=== PATIENT | female | born 1975 | race Caucasian/White ===

== ENCOUNTER 2017-03-20 09:22 | Emergency (ER) | payer OTHER ==
[~2017-03-20] VITALS: Wt 65.8 kg
[~2017-03-20 09:22] MED LIST: ADDERALL 20 MG20 MG PO; AMBIEN10 M1 PO; ATARAX25 MG PO; AUGMENTIN 875 M1 TAB PO; AUGMENTIN 875875 MG PO; BACTRIM DS 8001 TA1 PO; BENTYL10 MG PO; CLARITIN10 MG PO; DIFLUCAN150 MG PO; DONNATAL1 CA1; DONNATAL1 TAB PO; ELAVIL25 MG PO; FLONASE ALLERG9.9 ML NAS; HYDROCODONE BIT1 T11 PO; KEFLEX500 MG PO; LAMISIL; MEDROL DOSEPAK4 MG PO; MOTRIN800 MG PO; NAPROSYN500 MG PO; NKHM; NUVARING1 ICR; ORTHO TRI-CYCLE1 TA1 PO; PAC; PEPCID20 MG PO; PERCOCET 325 MG1 TA2 PO; PREDNICOT20 MG PO; PREDNISONE10 MG PO; PREVACID15 MG; ROBITUSSIN AC 110 ML PO; SEASONALE 30 MC1 TAB; VALIUM2 MG PO; VITAMINS FOR HA1 CAP PO; ZITHROMAX250 MG PO; ZOFRAN4 MG PO; [UNRECOGNIZED DRUG - REMARK]
[2017-03-20 09:27] VITALS: BP 129/86
== END 2017-03-20 10:06 | disposition home or self-care (01) ==
LOC: ED 09:22
DX: S61.011A Laceration without foreign body of right thumb without damage to nail, initial encounter (principal); F17.200 Nicotine dependence, unspecified, uncomplicated; Z29.12 Encounter for prophylactic antivenin; Z88.8 Allergy status to other drugs, medicaments and biological substances; Z79.899 Other long term (current) drug therapy; X58.XXXA Exposure to other specified factors, initial encounter; Y93.9 Activity, unspecified; Y92.9 Unspecified place or not applicable; Y99.9 Unspecified external cause status

== ENCOUNTER → 2018-02-20 | Outpatient (CLI) | payer OTHER | END | disposition home or self-care (01) | LOC: MAMMO 02-08 10:20 | DX: Z12.31 Encounter for screening mammogram for malignant neoplasm of breast (principal) ==

== ENCOUNTER → 2018-03-13 | Outpatient (CLI) | payer OTHER | END | disposition home or self-care (01) | LOC: LAB 13:27 | DX: R53.83 Other fatigue (principal); R79.89 Other specified abnormal findings of blood chemistry ==

== ENCOUNTER → 2019-01-18 | Outpatient (CLI) | payer OTHER | END | disposition home or self-care (01) | LOC: ORTHO 00:56 | DX: M25.551 Pain in right hip (principal) ==

== ENCOUNTER 2019-07-11 17:52 | Emergency (ER) | payer OTHER ==
[~2019-07-11] VITALS: Ht 154.9 cm; Wt 81.6 kg
[2019-07-11 17:52] VITALS: BP 117/89
[2019-07-11 18:50] LABS: BASO # 0.1 10*3/uL (0.0-0.1); BASO % 0.7 % (0.0-1.0); EOS # 0.2 10*3/uL (0.0-0.4); EOS % 2.2 % (1.0-4.0); HEMATOCRIT 42.2 % (37.0-47.0); HEMOGLOBIN 14.7 g/dl (12.0-16.0); LYMPH # 1.5 10*3/uL (1.3-4.4); MEAN CELL VOLUME 92.5 fl (81.0-99.0); MEAN CORPUSCULAR HGB 32.2 pg (27.0-31.0); MEAN CORPUSCULAR HGB CONC 34.8 g/dl (33.0-37.0); MEAN PLATELET VOLUME 9.9 fl (9.6-12.3); MONO # 0.6 10*3/uL (0.1-1.0); MONO % 6.9 % (3.0-9.0); NEUT # 5.9 10*3/uL (2.3-7.9); PLATELET COUNT AUTOMATED 296 10*3/uL (130-400); RED BLOOD COUNT 4.56 10*6/uL (4.10-5.10); RED CELL DISTRI WIDTH 11.4 % (0-14.5); WHITE BLOOD COUNT 8.2 10*3/uL (4.8-10.8)
[2019-07-11 19:03] LABS: ALBUMIN 3.9 gm/dl (3.1-4.5); ALKALINE PHOSPHATASE 68 U/L (45-117); BUN 16 mg/dl (7-24); CHLORIDE 106 mmol/L (98-107); CREATININE 0.93 mg/dL (0.55-1.02); POTASSIUM 4.1 mmol/L (3.5-5.1); SGOT/AST 15 IU/L (3-35); SGPT/ALT 24 U/L (12-78); SODIUM 138 mmol/L (136-145); TOTAL PROTEIN 7.7 gm/dL (6.4-8.2)
[2019-07-11] MEDS ORDERED: PERCOCET 5-3251 EACH PO (19:39)
--- NOTE | 2019-07-11 20:00 | NUR ---
PATIENT INSTRUCT ON IS USE. PATIENT ACHIEVED 2000 X 10. GOOD PATIENT EFFORT. INSTRUCTED ON SPLINTED COUGHING TECHNIQUE. EDUCATED PATIENT ON THE IMPORTANCE OF COUGH AND DEEP BREATHING TECNIQUES, ENCOURAGE PATIENT TO CONTINUE AT HOME.
== END 2019-07-11 20:04 | disposition home or self-care (01) ==
LOC: ED 17:52
PROVIDERS: Nurse Practitioner Family
DX: S22.41XA Multiple fractures of ribs, right side, initial encounter for closed fracture (principal); J45.909 Unspecified asthma, uncomplicated; Z88.8 Allergy status to other drugs, medicaments and biological substances; Z79.899 Other long term (current) drug therapy; W10.8XXA Fall (on) (from) other stairs and steps, initial encounter; Y93.01 Activity, walking, marching and hiking; Y92.89 Other specified places as the place of occurrence of the external cause; Y99.8 Other external cause status

== ENCOUNTER 2019-07-19 16:42 | Emergency (ER) | payer OTHER ==
[~2019-07-19] VITALS: Ht 170.1 cm; Wt 81.6 kg
[~2019-07-19 16:42] MED LIST changes: +PERCOCET 5-3251 EACH PO
[2019-07-19 16:45] VITALS: BP 131/69
[2019-07-19] MEDS ORDERED: NAPROSYN500 MG PO (18:13)
[2019-07-19] MEDS ORDERED: PREDNISONE50 MG PO (18:13)
[2019-07-19] MEDS ORDERED: ZITHROMAX250 MG PO (18:13)
[2019-07-19] MEDS ORDERED: DIFLUCAN150 MG PO (18:28)
[2019-07-19] MEDS ORDERED: ROBITUSSIN DM 105 ML PO (18:28)
== END 2019-07-19 18:20 | disposition home or self-care (01) ==
LOC: ED 16:42
DX: J20.9 Acute bronchitis, unspecified (principal); F17.200 Nicotine dependence, unspecified, uncomplicated; Z88.8 Allergy status to other drugs, medicaments and biological substances; Z79.899 Other long term (current) drug therapy

== ENCOUNTER 2019-08-18 16:44 | Emergency (ER) | payer OTHER ==
[~2019-08-18] VITALS: Wt 68.0 kg
[~2019-08-18 16:44] MED LIST changes: +PREDNISONE50 MG PO; +ROBITUSSIN DM 105 ML PO
[2019-08-18 17:14] LABS: BASO % 0.5 % (0.0-1.0); EOS # 0.1 10*3/uL (0.0-0.4); EOS % 2.5 % (1.0-4.0); HEMATOCRIT 38.8 % (37.0-47.0); HEMOGLOBIN 13.8 g/dl (12.0-16.0); LYMPH # 1.4 10*3/uL (1.3-4.4); LYMPH % 24.6 % (27.0-41.0); MEAN CELL VOLUME 90.4 fl (81.0-99.0); MEAN CORPUSCULAR HGB 32.2 pg (27.0-31.0); MEAN CORPUSCULAR HGB CONC 35.6 g/dl (33.0-37.0); MEAN PLATELET VOLUME 9.9 fl (9.6-12.3); MONO # 0.5 10*3/uL (0.1-1.0); MONO % 8.1 % (3.0-9.0); NEUT # 3.6 10*3/uL (2.3-7.9); NEUT % 64.3 % (47.0-73.0); PLATELET COUNT AUTOMATED 251 10*3/uL (130-400); RED BLOOD COUNT 4.29 10*6/uL (4.10-5.10); RED CELL DISTRI WIDTH 11.4 % (0-14.5); WHITE BLOOD COUNT 5.7 10*3/uL (4.8-10.8)
[2019-08-18 17:24] LABS: ACT PARTIAL THROMBO TIME 27.5 SECONDS (20.0-32.1); INTERNATIONAL NORM RATIO 0.9 (2.0-3.5)
[2019-08-18 17:31] LABS: ALBUMIN 3.6 gm/dl (3.1-4.5); ALKALINE PHOSPHATASE 57 U/L (45-117); BUN 12 mg/dl (7-24); CHLORIDE 104 mmol/L (98-107); CREATININE 0.94 mg/dL (0.55-1.02); LIPASE 79 U/L (73-393); POTASSIUM 3.5 mmol/L (3.5-5.1); SGOT/AST 20 IU/L (3-35); SGPT/ALT 24 U/L (12-78); SODIUM 136 mmol/L (136-145); TOTAL PROTEIN 7.2 gm/dL (6.4-8.2)
[2019-08-18 17:32] LABS: B-hCG (QUALITATIVE) NEGATIVE (NEGATIVE)
[2019-08-18 17:39] LABS: ETHYL ALCOHOL < 3.0 mg/dl (<3); TROPONIN I < 0.015 ng/ml (<0.045)
[2019-08-18 18:05] VITALS: BP 154/82
[2019-08-18 18:17] LABS: BILIRUBIN NEGATIVE (NEGATIVE); BLOOD TRACE-INTACT (NEGATIVE); CLARITY SL CLOUDY (CLEAR); COLOR YELLOW (YELLOW); GLUCOSE NEGATIVE (NEGATIVE); KETONE 2+ (NEGATIVE); LEUKO ESTERASE NEGATIVE (NEGATIVE); NITRITE NEGATIVE (NEGATIVE); SPECIFIC GRAVITY <= 1.005 (1.005-1.030); UROBILINOGEN 0.2 E.U./dl (0.2-1.0)
[2019-08-18 18:25] LABS: BACTERIA 3+; EPITHELIAL CELLS 20-25; RBC 0-2 rbc/hpf (0-2); URINE AMPHETAMINES < 1000 (1000ng/ml); URINE BARBITURATES < 200 (200ng/ml); URINE BENZODIAZEPINES > 200 (200ng/ml); URINE CANNABINOIDS (THC) < 50 (50ng/ml); URINE COCAINE < 300 (300ng/ml); URINE METHADONE < 300 (300ng/ml); URINE OPIATES < 300 (300ng/ml)
[2019-08-18 18:26] LABS: URINE PHENCYCLIDINE < 25 (25ng/ml)
[2019-08-18] MEDS ORDERED: CYCLOBENZAPRINE10 MG PO (18:34)
[2019-08-18] MEDS ORDERED: TYLENOL325 M1 PO (18:34)
[2019-08-18] MEDS ORDERED: Motrin,Rufen400 MG PO (18:34)
[2019-08-18] MEDS ORDERED: PRILOSEC20 M1 PO (18:34)
== END 2019-08-18 18:37 | disposition home or self-care (01) ==
LOC: ED 16:44
PROVIDERS: Emergency Medicine
DX: M79.18 Myalgia, other site (principal); M25.511 Pain in right shoulder; K30 Functional dyspepsia; Z79.899 Other long term (current) drug therapy; Z88.8 Allergy status to other drugs, medicaments and biological substances; X58.XXXA Exposure to other specified factors, initial encounter; Y93.89 Activity, other specified; Y92.89 Other specified places as the place of occurrence of the external cause; Y99.8 Other external cause status

== ENCOUNTER → 2020-07-29 | Outpatient (CLI) | payer OTHER ==
[~2020-07-29] MED LIST changes: +CYCLOBENZAPRINE10 MG PO; +Motrin,Rufen400 MG PO; +PRILOSEC20 M1 PO; +TYLENOL325 M1 PO
== END | disposition home or self-care (01) ==
LOC: MAMMO 14:10
PROVIDERS: ATTEND Nurse Practitioner Family
DX: Z12.31 Encounter for screening mammogram for malignant neoplasm of breast (principal)

== ENCOUNTER → 2020-08-26 | Outpatient (CLI) | payer OTHER | END | disposition home or self-care (01) | LOC: RAD 09:59 | PROVIDERS: ATTEND Nurse Practitioner Family | DX: R00.0 Tachycardia, unspecified (principal); R03.0 Elevated blood-pressure reading, without diagnosis of hypertension; R35.8 Other polyuria; R63.1 Polydipsia ==

== ENCOUNTER → 2020-08-31 | Outpatient (CLI) | payer OTHER | END | disposition home or self-care (01) | LOC: CARD 08:50 | PROVIDERS: ATTEND Nurse Practitioner Family | DX: R03.0 Elevated blood-pressure reading, without diagnosis of hypertension (principal); R00.0 Tachycardia, unspecified; R35.0 Frequency of micturition; R63.1 Polydipsia ==

== ENCOUNTER 2020-09-01 00:17 | Emergency (ER) | payer OTHER ==
[~2020-09-01] VITALS: Ht 167.6 cm; Wt 74.8 kg
[2020-09-01 00:26] VITALS: BP 149/104
[2020-09-01 01:57] LABS: BASO % 0.6 % (0.0-1.0); EOS # 0.3 10*3/uL (0.0-0.4); EOS % 3.7 % (1.0-4.0); HEMATOCRIT 39.8 % (37.0-47.0); LYMPH # 2.1 10*3/uL (1.3-4.4); LYMPH % 31.1 % (27.0-41.0); MEAN CELL VOLUME 92.8 fl (81.0-99.0); MEAN CORPUSCULAR HGB CONC 33.4 g/dl (33.0-37.0); MEAN PLATELET VOLUME 10.1 fl (9.6-12.3); MONO # 0.6 10*3/uL (0.1-1.0); MONO % 8.8 % (3.0-9.0); NEUT # 3.8 10*3/uL (2.3-7.9); NEUT % 55.5 % (47.0-73.0); PLATELET COUNT AUTOMATED 242 10*3/uL (130-400); RED BLOOD COUNT 4.29 10*6/uL (4.10-5.10); RED CELL DISTRI WIDTH 11.6 % (0-14.5); WHITE BLOOD COUNT 6.8 10*3/uL (4.8-10.8)
[2020-09-01 02:12] LABS: BILIRUBIN Negative (Negative); BLOOD Trace-Lysed (Negative); CLARITY Clear (Clear); COLOR Yellow (Yellow); GLUCOSE Negative (Negative); KETONE Negative (Negative); LEUKO ESTERASE Negative (Negative); NITRITE Negative (Negative); PH 6.5 (4.5-8.0); UROBILINOGEN 0.2 E.U./dl (0.0-1.0)
[2020-09-01 02:12] LABS: ALBUMIN 3.7 gm/dl (3.1-4.5); CREATININE 1.21 mg/dL (0.55-1.02); POTASSIUM 4.3 mmol/L (3.5-5.1); TOTAL PROTEIN 7.4 gm/dL (6.4-8.2)
[2020-09-01 02:19] LABS: BACTERIA 1+
== END 2020-09-01 05:35 | disposition home or self-care (01) ==
LOC: ED 00:17
PROVIDERS: Emergency Medicine
DX: I10 Essential (primary) hypertension (principal); Z88.8 Allergy status to other drugs, medicaments and biological substances; Z79.899 Other long term (current) drug therapy

== ENCOUNTER 2021-03-26 20:24 | Emergency (ER) | payer OTHER ==
[~2021-03-26] VITALS: Ht 170.1 cm; Wt 74.8 kg
[2021-03-26 20:36] VITALS: BP 129/89
[2021-03-26] MEDS ORDERED: AMOXICILLIN500 M2 PO (23:05)
== END 2021-03-26 23:20 | disposition home or self-care (01) ==
LOC: ED 20:24
DX: J03.90 Acute tonsillitis, unspecified (principal); Z79.899 Other long term (current) drug therapy

== ENCOUNTER 2022-11-29 18:21 | Emergency (ER) | payer OTHER ==
[~2022-11-29] VITALS: Wt 65.8 kg
[~2022-11-29 18:21] MED LIST changes: +AMOXICILLIN500 M2 PO
[2022-11-29 18:28] VITALS: BP 131/80
== END 2022-11-29 21:52 | disposition home or self-care (01) ==
LOC: ED 18:21
DX: K22.89 Other specified disease of esophagus (principal); Z88.8 Allergy status to other drugs, medicaments and biological substances; Z90.89 Acquired absence of other organs; Z98.890 Other specified postprocedural states; F10.90 Alcohol use, unspecified, uncomplicated

== ENCOUNTER 2023-03-18 11:56 | Emergency (ER) | payer OTHER ==
[~2023-03-18] VITALS: Wt 65.8 kg
[2023-03-18 12:09] VITALS: BP 106/64
[2023-03-18] MEDS ORDERED: CLEOCIN HCL150 MG PO (12:23)
== END 2023-03-18 12:34 | disposition home or self-care (01) ==
LOC: ED 11:56
DX: K04.7 Periapical abscess without sinus (principal); K08.89 Other specified disorders of teeth and supporting structures; J45.909 Unspecified asthma, uncomplicated; F41.9 Anxiety disorder, unspecified; Z88.8 Allergy status to other drugs, medicaments and biological substances; Z98.890 Other specified postprocedural states; Z90.12 Acquired absence of left breast and nipple

== ENCOUNTER 2023-10-04 18:26 | Emergency (ER) | payer OTHER ==
[~2023-10-04] VITALS: Ht 170.1 cm; Wt 68.0 kg
[~2023-10-04 18:26] MED LIST changes: +CLEOCIN HCL150 MG PO
[2023-10-04 18:38] VITALS: BP 127/79
[2023-10-04] MEDS ORDERED: AMOX-CLAV 875-1 EACH PO (18:52)
[2023-10-04] MEDS ORDERED: FLUCONAZOLE100 MG PO (18:58)
== END 2023-10-04 19:08 | disposition home or self-care (01) ==
LOC: ED 18:26
DX: S61.052A Open bite of left thumb without damage to nail, initial encounter (principal); F41.9 Anxiety disorder, unspecified; J45.909 Unspecified asthma, uncomplicated; Z88.8 Allergy status to other drugs, medicaments and biological substances; Z98.890 Other specified postprocedural states; Z90.13 Acquired absence of bilateral breasts and nipples; W55.01XA Bitten by cat, initial encounter; Y93.89 Activity, other specified; Y92.89 Other specified places as the place of occurrence of the external cause; Y99.8 Other external cause status